=== PATIENT | female | born 1975 | race Two or more races ===

== ENCOUNTER 2017-08-28 10:56 | Inpatient (IN) | payer MEDICAID ==
[2017-08-28] MEDS ORDERED: cefTRIAXone 1 GM in Sodium Chloride 0.9% 50 ML IV ONE (11:34)
--- NOTE | 2017-08-28 11:56 | ED Physician Chart ---
ED Chief Complaint/HPI - Patient Information Date Seen:: 08/28/17 Time Seen:: 11:00 Chief Complaint:: Left Leg Redness History of Present Illness:: onset x 3 days of LLE erythema, pain, and swelling after a possible insect bite 3 days ago; pt's last tetanus shot: > 5 years; pt denies trauma, H/As, neck pain , S/T, cough, C/P, SOB, Abd. pain, A/N/V/D/C, fever, chills, or urinary s/s Allergies:: Allergies Allergy/AdvReac Type Severity Reaction Status Date / Time No Known Allergies Allergy Verified 08/28/17 11:18 Vitals:: Vital Signs - 8 hr 08/28/17 11:08 Temp 98.3 F HR 96 RR 16 BP 123/60 O2 Sat % 97 Historian:: Patient, Family Member Review:: Nurse's Note Reviewed ED Review of Systems - Review of Systems General/Constitutional: No fever, No chills, No weight loss, No weakness, No diaphoresis, No edema, No loss of appetite Skin: Skin lesions, Rash, No bruising Head: No headache, No light-headedness Eyes: No loss of vision, No pain, No diplopia ENT: No earache, No nasal drainage, No sore throat, No tinnitus Neck: No neck pain, No swelling, No thyromegaly, No stiffness, No mass noted Cardio Vascular: No chest pain, No palpitations, No PND, No orthopnea, No edema Pulmonary: No SOB, No cough, No sputum, No wheezing GI: No nausea, No vomiting, No diarrhea, No pain, No melena, No hematochezia, No constipation, No hematemesis G/U: No dysuria, No frequency, No hematuria, No nacturia Visual Inspector: No vaginal discharge, No abnormal vaginal bleed, No contraction Musculoskeletal: No bone or joint pain, No back pain, No muscle pain Endocrine: No polyuria, No polydipsia Psychiatric: No prior psych history, No depression, No anxiety, No suicidal ideation, No homicidal ideation, No auditory hallucination, No visual hallucination Hematopoietic: No bruising, No lymphadenopathy Allergic/Immuno: No urticaria, No angioedema Neurological: No syncope, No focal symptoms, No weakness, No paresthesia, No headache, No seizure, No dizziness, No confusion, No vertigo ED Past Medical History - Past Medical History Obtainable: Yes Past Medical History: No significant medical hx Family History: HTN Social History: Non Smoker, No Alcohol, No Drug Use, Single Surgical History: None Psychiatricy History: None Medication: Reviewed Family Medical History - Family Member Mother History Unknown: Yes ED Physical Exam - Physical Examination General/Constitutional: Awake, Well-developed, well-nourished, Alert, No distress, GCS 15, Non-toxic appearing, Ambulatory Head: Atraumatic Eyes: Lids, conjuctiva normal, PERRL, EOMI Skin: Nl inspection, No rash, No skin lesions, No ecchymosis, Well hydrated, No lymphadenopathy Other Skin comments:: + LLE Cellulitis; + Insect Bite PW; no FBs; good NV functions ENMT: External ears, nose nl, TM canals nl, Nasal exam nl, Lips, teeth, gums nl , Oropharynx nl, Tonsils nl Neck: Nontender, Full ROM w/o pain, No JVD, No nuchal rigidity, No bruit, No mass, No stridor Respiratory: Nl effort/Exclusion, Clear to Auscultation, No Wheeze/Rhonchi/Rales Cardio Vascular: RRR, No murmur, gallop, rubs, NL S1 S2, Carotid/Femoral/Distal pulses equal bilaterally GI: No tenderness/rebounding/guarding, No organomegaly, No hernia, Normal BS's, Nondistended, No mass/bruits, No McBurney tenderness : No CVA tenderness Extremities: No tenderness or effusion, Full ROM, normal strength in all extremities, No edema, Normal digits & nails Neuro/Psych: Alert/oriented, DTR's symmetric, Normal sensory exam, Normal motor strength, Judgement/insight normal, Mood normal, Normal gait, No focal deficits Misc: Normal back, No paraspinal tenderness ED Labs/Radiology/EKG Results - Lab Results Comments:: unremarkable - Radiology Results Comments:: NAD - EKG Interpretations Rate & Rhythm: NSR Comments:: non-specific st-t changes ED Septic Shock - . Is Septic Shock (SBP<90, OR Lactate>4 mmol\L) present?: No - <6hrs of presentation: Vital Signs: Vital Signs - 8 hr 08/28/17 11:08 Temp 98.3 F HR 96 RR 16 BP 123/60 O2 Sat % 97 ED Reassessment (Disposition) - Reassessment Reassessment Condition:: Improved - Diagnosis Diagnosis:: Left Leg Cellulitis; LLE Erythema and Swelling - Aftercare/Follow up Instructions Aftercare/Follow-Up Instructions:: Counseled pt regarding lab results/diagnosis & need follow up, Counseled pt & family regarding lab results/diagnosis & need follow up - Patient Disposition Discharge/Transfer:: Acute Care w/in this hosp Accepting Physician:: Dr. Cisse Time Called:: 1145 Time Responded:: 11:45 Admitted to:: Med/Surg Spoke to:: Dr. Cisse Admitting Medical Physician:: Dr. Cisse Condition at Disposition:: Stable, Improved
[2017-08-28 12:01] LABS: INR 1.1 (0.5-1.4); PROTHROMBIN TIME (TEST) 11.5 SECONDS (9.5-11.5)
[2017-08-28 12:05] LABS: MANUAL DIFF REQUIRED? YES; MEAN CELL VOLUME 84.3 fl (81-100)
[2017-08-28 12:08] LABS: ALB/GLOB RATIO 1.2 (1.0-1.8); ALBUMIN 3.3 gm/dL (3.7-5.3); ALKALINE PHOSPHATASE 71 U/L (34-104); ANION GAP 11.2 (7.0-16.0); BILIRUBIN,TOTAL 0.9 mg/dL (0.3-1.0); BUN - UREA NITROGEN 11 mg/dL (7-25); CALCIUM SERUM 8.3 mg/dL (8.6-10.3); CARBON DIOXIDE 24.3 mEq/L (21.0-31.0); CHLORIDE 102 mEq/L (98-107); CREATININE - SERUM 0.6 mg/dL (0.6-1.2); CREATININE KINASE 60 U/L (30-223); GFR AFRICAN-AMERICAN > 60.0 ml/min (>90); GFR NON AFRICAN-AMERICAN > 60.0 ml/min; GLUCOSE 116 mg/dL (70-105); POTASSIUM SERUM 3.5 mEq/L (3.5-5.1); SGOT 24 U/L (13-39); SGPT/ALT 34 U/L (7-52); SODIUM SERUM 134 mEq/L (136-145); TOTAL PROTEIN,SERUM 6.1 gm/dL (6.0-8.3)
[2017-08-28 12:09] LABS: HEMATOCRIT 35.2 % (41.0-60); HEMOGLOBIN 11.9 gm/dL (12-16); MEAN CORPUSCULAR HEMOGLOBIN 28.4 pg (27.0-31.0); MEAN CORPUSCULAR HGB CONC 33.7 pg (28.0-36.0); MEAN PLATELET VOLUME 7.9 fl; PLATELET COUNT 265 Th/cmm (150-400); RED BLOOD COUNT 4.17 Mil/cmm (3.80-5.10); RED CELL DISTRIBUTION WIDTH 14.6 % (11.5-20.0)
[2017-08-28 12:12] LABS: WHITE BLOOD COUNT 19.7 Th/cmm (4.8-10.8)
[2017-08-28 12:21] LABS: TROP I < 0.01 ng/mL (0.01-0.05)
[2017-08-28 12:31] LABS: BAND NEUTROPHILE 11 % (0-10); BASOPHIL 0 % (0-3); EOSINOPHIL 0 % (0-5); LYMPHOCYTE 4 % (20-50); MONOCYTE 1 % (2-10); NEUTROPHILS 84 % (40-80); PLATELET ESTIMATE ADEQUATE (NORMAL); TOTAL CELLS COUNTED 100
[2017-08-28] MEDS ORDERED: Morphine Sulfate 2 mg/mL 1mL Syr IV STA (14:08)
[2017-08-28] MEDS ORDERED: Morphine Sulfate 2 mg/mL 1mL Syr ONE (14:23)
--- NOTE | 2017-08-28 14:37 | Diagnostic Imaging Report ---
Bilateral lower extremity DVT study HISTORY: Pain COMPARISON: None Technique: Longitudinal and transverse sonographic images of the bilateral lower extremity veins were obtained with doppler analysis. FINDINGS: There is normal compressibility, augmentation and phasicity of the bilateral common femoral, superficial femoral, popliteal, and posterior tibial veins. No thrombus is visualized. IMPRESSION: No evidence of thrombus within the bilateral lower extremity veins.
[2017-08-28] MEDS ORDERED: Morphine Sulfate 2 mg/mL 1mL Syr IVP PRN (15:31)
[2017-08-28 15:36] LABS: URINE MICROSCOPIC INDICATED? YES; URINE SOURCE MIDSTREAM
[2017-08-28 15:40] LABS: URINE BLOOD NEGATIVE (NEGATIVE); URINE GLUCOSE (UA) NEGATIVE (NEGATIVE); URINE KETONE TRACE mg/dL (NEGATIVE); URINE LEUKOCYTE ESTERASE NEGATIVE (NEGATIVE); URINE NITRATE POSITIVE (NEGATIVE); URINE PH 6.5 (4.6 - 8.0); URINE PROTEIN 100 mg/dL (NEGATIVE)
[2017-08-28 15:46] LABS: URINE COLOR ORANGE
[2017-08-28 15:54] LABS: URINE BILIRUBIN NEGATIVE (NEGATIVE); URINE CLARITY CLOUDY (CLEAR)
[2017-08-28 15:55] LABS: URINE BACTERIA 1+ /hpf (NONE SEEN); URINE EPITHELIAL CELLS MANY /lpf (FEW); URINE RBC 0-2 /hpf (0-5); URINE WBC 0-2 /hpf (0-5)
[2017-08-28 15:56] LABS: URINE ICTOTEST NEGATIVE (NEGATIVE)
[2017-08-28] MEDS: Enoxaparin 40 mg/0.4 mL 0.4mL Syr SUBQ SCH (17:16)
[2017-08-28 18:00] VITALS: BP 137/67
[2017-08-28] MEDS ORDERED: Pneumococcal Vaccine 0.5 mL Vial IM ONE (18:26)
--- NOTE | 2017-08-28 19:25 | History & Physical ---
ADMIT DATE: CHIEF COMPLAINT: Cellulitis of left lower extremity. HISTORY OF PRESENT ILLNESS: The patient is a 41-year-old female, who presented to the Emergency Room complaining of severe pain on the left lower extremity with redness and swelling, evaluated by the ER physician. Initial workup significant for severe cellulitis of left lower extremity. No chest pain or shortness of breath. No nausea, no vomiting, no fever, no chills. Admitted to medical floor, started on regular diet, IV antibiotic, pain medication. DVT prophylaxis. Infectious disease consultation obtained. PAST MEDICAL HISTORY: Negative. PAST SURGICAL HISTORY: and hysterectomy. ALLERGIES: None. MEDICATIONS: None. SOCIAL HISTORY: She smoke cigarettes. No alcohol or drugs. FAMILY HISTORY: Noncontributory. REVIEW OF SYSTEMS: SYSTEM: No history of chronic immune disorder. CARDIOVASCULAR SYSTEM: No coronary artery disease. ENDOCRINE SYSTEM: No diabetes or thyroid problem. GASTROINTESTINAL SYSTEM: No upper or lower gastrointestinal bleed. NEUROLOGICAL SYSTEM: No seizure disorder. MUSCULOSKELETAL SYSTEM: No muscular dystrophy. HEMATOLOGIC: No bleeding tendencies. RESPIRATORY SYSTEM: No asthma. GENITOURINARY: No dysuria or hematuria. PHYSICAL EXAMINATION: GENERAL: She is awake, alert, oriented, mildly in pain, not in distress. VITAL SIGNS: Temperature 99.0, heart rate 82, blood pressure 108/64. HEENT: Normocephalic. Pupils reacting equal to light and accommodation. Sclerae clear. NECK: Supple. Negative for lymphadenopathy, JVD, or bruit. CHEST: Entry of air bilaterally normal. No rhonchi or wheezing. HEART: S1, S2 normal. No murmur or gallop rhythm. ABDOMEN: Soft, bowel sounds positive. EXTREMITIES: Significant for redness, tenderness, swelling of the left lower extremity. NEUROLOGICAL: She is awake, alert, oriented. No focal motor or sensory deficit. LABORATORY DATA: White blood cells 19.7, hemoglobin 11.9, hematocrit 35.2, platelet 264. Sodium 134, potassium 3.5, BUN 11, creatinine 0.6. ASSESSMENT: Cellulitis of left lower extremities. PLAN: The patient admitted to the hospital under Dr. Cisse's service, started on regular diet, IV antibiotic, pain medication, Lovenox 40 mg subcutaneous for DVT prophylaxis. CBC, CMP for tomorrow. Dr. Elpidio Su consulted on the case. [facility]# [id number]
[2017-08-28] MEDS ORDERED: Clindamycin 150 mg/mL 4mL Vial ONE (20:47)
[2017-08-28] MEDS: CLINDAMYCIN 900 MG/50 ML IV SCH (23:16)
[2017-08-29] MEDS ORDERED: Clindamycin 150 mg/mL 4mL Vial ONE (04:06)
[2017-08-29 06:21] LABS: ALBUMIN 3.1 gm/dL (3.7-5.3); ALKALINE PHOSPHATASE 74 U/L (34-104); ANION GAP 10.9 (7.0-16.0); BILIRUBIN,TOTAL 0.7 mg/dL (0.3-1.0); BUN - UREA NITROGEN 10 mg/dL (7-25); CALCIUM SERUM 8.4 mg/dL (8.6-10.3); CARBON DIOXIDE 23.8 mEq/L (21.0-31.0); CHLORIDE 102 mEq/L (98-107); CREATININE - SERUM 0.7 mg/dL (0.6-1.2); GFR AFRICAN-AMERICAN > 60.0 ml/min (>90); GFR NON AFRICAN-AMERICAN > 60.0 ml/min; GLUCOSE 88 mg/dL (70-105); POTASSIUM SERUM 3.7 mEq/L (3.5-5.1); SGOT 28 U/L (13-39); SGPT/ALT 36 U/L (7-52); SODIUM SERUM 133 mEq/L (136-145); TOTAL PROTEIN,SERUM 6.1 gm/dL (6.0-8.3)
[2017-08-29 06:43] LABS: % BASOPHILS 0.2 % (0.0-2.0); % EOSINOPHILS 0.2 % (0.0-5.0); % LYMPHOCYTES 10.3 % (20.0-50.0); % NEUTROPHILS 85.3 % (40.0-80.0); HEMATOCRIT 33.8 % (41.0-60); HEMOGLOBIN 11.6 gm/dL (12-16); LYMPHOCYTE ABSOLUTE 1.5 Th/cmm (1.5-3.0); MEAN CELL VOLUME 84.9 fl (81-100); MEAN CORPUSCULAR HEMOGLOBIN 29.2 pg (27.0-31.0); MEAN CORPUSCULAR HGB CONC 34.4 pg (28.0-36.0); MEAN PLATELET VOLUME 8.2 fl; MONOCYTE ABSOLUTE 0.6 Th/cmm (0.3-1.0); NEUTROPHILE ABSOLUTE 12.7 Th/cmm (1.8-8.0); PLATELET COUNT 229 Th/cmm (150-400); RED BLOOD COUNT 3.99 Mil/cmm (3.80-5.10)
[2017-08-29 06:49] LABS: WHITE BLOOD COUNT 14.8 Th/cmm (4.8-10.8)
[2017-08-29] MEDS: CLINDAMYCIN 900 MG/50 ML IV SCH ×3 (06:54→20:34)
[2017-08-29] MEDS: Enoxaparin 40 mg/0.4 mL 0.4mL Syr SUBQ SCH (08:58)
--- NOTE | 2017-08-29 10:28 | Internal Medicine Prog Note ---
Internal Medicine Subjective - Subjective Service Date: 08/29/17 Patient seen and examined:: with staff Patient is:: awake, in bed, talking Patient Complaints of:: other (LESS PAIN OF LEFT LOWER EXTREMETY.) Internal Medicine Objective - Results Result Diagrams: 08/29/17 05:15 08/29/17 05:15 Recent Labs: Laboratory Last Values WBC 14.8 Th/cmm (4.8-10.8) H D 08/29/17 05:15 RBC 3.99 Mil/cmm (3.80-5.10) 08/29/17 05:15 Hgb 11.6 gm/dL (12-16) L 08/29/17 05:15 Hct 33.8 % (41.0-60) L 08/29/17 05:15 MCV 84.9 fl (81-100) 08/29/17 05:15 MCH 29.2 pg (27.0-31.0) 08/29/17 05:15 MCHC Differential 34.4 pg (28.0-36.0) 08/29/17 05:15 RDW 15.0 % (11.5-20.0) 08/29/17 05:15 Plt Count 229 Th/cmm (150-400) 08/29/17 05:15 MPV 8.2 fl 08/29/17 05:15 Neutrophils % 85.3 % (40.0-80.0) H 08/29/17 05:15 Band Neutrophils % 11 % (0-10) H 08/28/17 11:20 Lymphocytes % 10.3 % (20.0-50.0) L 08/29/17 05:15 Monocytes % 4.0 % (2.0-10.0) 08/29/17 05:15 Eosinophils % 0.2 % (0.0-5.0) 08/29/17 05:15 Basophils % 0.2 % (0.0-2.0) 08/29/17 05:15 Neutrophils (Manual) 84 % (40-80) H 08/28/17 11:20 Lymphocytes 4 % (20-50) L 08/28/17 11:20 Monocytes 1 % (2-10) L 08/28/17 11:20 Eosinophils 0 % (0-5) 08/28/17 11:20 Basophils 0 % (0-3) 08/28/17 11:20 Platelet Estimate ADEQUATE (NORMAL) 08/28/17 11:20 PT 11.5 SECONDS (9.5-11.5) 08/28/17 11:20 INR 1.10 (0.5-1.4) 08/28/17 11:20 PTT (Actin FS) 27.6 SECONDS (26.0-38.0) 08/28/17 11:20 Sodium 133 mEq/L (136-145) L 08/29/17 05:15 Potassium 3.7 mEq/L (3.5-5.1) 08/29/17 05:15 Chloride 102 mEq/L (98-107) 08/29/17 05:15 Carbon Dioxide 23.8 mEq/L (21.0-31.0) 08/29/17 05:15 Anion Gap 10.9 (7.0-16.0) 08/29/17 05:15 BUN 10 mg/dL (7-25) 08/29/17 05:15 Creatinine 0.7 mg/dL (0.6-1.2) 08/29/17 05:15 Est GFR ( Amer) > 60.0 ml/min (>90) 08/29/17 05:15 Est GFR (Non-Af Amer) > 60.0 ml/min 08/29/17 05:15 BUN/Creatinine Ratio 14.3 08/29/17 05:15 Glucose 88 mg/dL (70-105) 08/29/17 05:15 Whole Bld Lactic Acid 1.97 mmol/L (0.60-1.99) 08/28/17 11:20 Calcium 8.4 mg/dL (8.6-10.3) L 08/29/17 05:15 Total Bilirubin 0.7 mg/dL (0.3-1.0) 08/29/17 05:15 AST 28 U/L (13-39) 08/29/17 05:15 ALT 36 U/L (7-52) 08/29/17 05:15 Alkaline Phosphatase 74 U/L (34-104) 08/29/17 05:15 Creatine Kinase 60 U/L (30-223) 08/28/17 11:20 Troponin I < 0.01 ng/mL (0.01-0.05) L 08/28/17 11:20 Total Protein 6.1 gm/dL (6.0-8.3) 08/29/17 05:15 Albumin 3.1 gm/dL (3.7-5.3) L 08/29/17 05:15 Globulin 3.0 gm/dL 08/29/17 05:15 Albumin/Globulin Ratio 1.0 (1.0-1.8) 08/29/17 05:15 Serum , Qual NEGATIVE (NEGATIVE) 08/28/17 11:20 Urine Source MIDSTREAM 08/28/17 14:00 Urine Color ORANGE 08/28/17 14:00 Urine Clarity CLOUDY (CLEAR) H 08/28/17 14:00 Urine pH 6.5 (4.6 - 8.0) 08/28/17 14:00 Ur Specific [place] 1.020 (1.005-1.030) 08/28/17 14:00 Urine Protein 100 mg/dL (NEGATIVE) H 08/28/17 14:00 Urine Glucose (UA) NEGATIVE mg/dL (NEGATIVE) 08/28/17 14:00 Urine Ketones TRACE mg/dL (NEGATIVE) 08/28/17 14:00 Urine Blood NEGATIVE (NEGATIVE) 08/28/17 14:00 Urine Nitrate POSITIVE (NEGATIVE) H 08/28/17 14:00 Urine Bilirubin NEGATIVE (NEGATIVE) 08/28/17 14:00 Urine Ictotest NEGATIVE (NEGATIVE) 08/28/17 14:00 Urine Urobilinogen 4.0 E.U./dL (0.2 - 1.0) H 08/28/17 14:00 Ur Leukocyte Esterase NEGATIVE (NEGATIVE) 08/28/17 14:00 Urine RBC 0-2 /hpf (0-5) 08/28/17 14:00 Urine WBC 0-2 /hpf (0-5) 08/28/17 14:00 Ur Epithelial Cells MANY /lpf (FEW) 08/28/17 14:00 Urine Bacteria 1+ /hpf (NONE SEEN) H 08/28/17 14:00 - Physical Exam Vitals and I&O: Vital Signs Temp 97.7 F 08/29/17 08:00 Pulse 90 08/29/17 08:00 Resp 18 08/29/17 08:00 BP 116/65 08/29/17 08:00 Pulse Ox 99 08/29/17 08:00 Intake & Output 08/28/17 08/29/17 08/29/17 18:59 06:59 18:59 Intake Total 1000 Balance 1000 Weight (lbs) 117.934 kg 117.934 kg Intake: Intake, IV Amount 400 Clindamycin 900mg/50mL 50 900 mg In 50 ml @ 100 mls /hr IV Q8HR [facility], [facility]–1983 Rx#: [id number] Piperacillin Sodium/ 100 Tazobact 4.5 gm In Sodium Chloride 0.9% 100 ml @ 100 mls/hr IV Q8HR [facility], [facility]–1983 Rx #:[id number] Vancomycin HCl 1.25 gm In 250 Sodium Chloride 0.9% 250 ml @ 165 mls/hr IV Q8H [facility], [facility]1983 Rx#:[id number] Oral 600 Other: # Voids 2 # Bowel Movements 0 Weight Source Estimated Bedscale Active Medications: Current Medications Acetaminophen (Tylenol) 650 mg PO Q4H PRN PRN Reason: Pain or Fever >101 Stop: 10/27/17 15:31 Last Admin: 08/29/17 06:46 Dose: 650 mg Enoxaparin Sodium (Lovenox) 40 mg SUBQ DAILY [facility], [facility]1983 Stop: 10/27/17 16:59 Last Admin: 08/29/17 08:58 Dose: 40 mg Vancomycin HCl 1.25 gm/ Sodium (Chloride) 250 mls @ 165 mls/hr IV Q8H [facility]1983 Stop: 10/28/17 00:59 Last Admin: 08/29/17 09:19 Dose: 165 mls/hr Clindamycin Phosphate (Cleocin Pb) 900 mg in 50 mls @ 100 mls/hr IV Q8HR [facility]1983 Stop: 10/27/17 20:59 Last Admin: 08/29/17 06:54 Dose: 100 mls/hr Piperacillin Sod/Tazobactam (Sod 4.5 gm/ Sodium Chloride) 100 mls @ 100 mls/hr IV Q8HR [facility]1983 Stop: 10/27/17 20:59 Last Admin: 08/29/17 05:03 Dose: 100 mls/hr Morphine Sulfate (Morphine) 2 mg IVP Q4HR PRN PRN Reason: Pain (Severe) Stop: 10/27/17 15:30 Ondansetron HCl (Zofran) 4 mg IV Q4H PRN PRN Reason: Nausea / Vomiting Stop: 10/27/17 15:32 General: obese HEENT: NC/AT, PERRLA, anicteric sclerae, throat clear Neck: Supple, No JVD, No thyromegaly, No LAD, + JVD Lungs: CTAB Cardiovascular: Normal S1, Normal S2, without murmur Abdomen: non-tender, non-distended Extremities: other (REDNESS OF LEFT LOWER EXTREMETY) Neurological: alert - Procedures Procedures: Procedures Procedure Code Date EPISIOTOMY 73.6 04/14/96 EKG 75.32 04/14/96 MONITORING NOS 75.34 04/14/96 Internal Medicine Assmt/Plan - Assessment Assessment: 1.CELLULITIS OF LEFT LOWER EXTREMETY. - Plan Plan: CONTINUE ON CURRENT MEDICATION AND DIET.
[2017-08-30] MEDS ORDERED: Hydrocodone/APAP 5mg/325mg Tab PO PRN (01:46)
[2017-08-30] MEDS: CLINDAMYCIN 900 MG/50 ML IV SCH ×2 (04:59→13:08)
[2017-08-30 06:38] LABS: % BASOPHILS 0.5 % (0.0-2.0); % EOSINOPHILS 1.3 % (0.0-5.0); % LYMPHOCYTES 17.6 % (20.0-50.0); % MONOCYTES 4.8 % (2.0-10.0); % NEUTROPHILS 75.8 % (40.0-80.0); BASOPHILE ABSOLUTE 0.1 Th/cumm (0-0.2); EOSINOPHILE ABSOLUTE 0.1 Th/cmm (0.1-0.4); HEMATOCRIT 31.1 % (41.0-60); HEMOGLOBIN 10.8 gm/dL (12-16); LYMPHOCYTE ABSOLUTE 1.8 Th/cmm (1.5-3.0); MEAN CELL VOLUME 84.2 fl (81-100); MEAN CORPUSCULAR HEMOGLOBIN 29.1 pg (27.0-31.0); MEAN CORPUSCULAR HGB CONC 34.5 pg (28.0-36.0); MEAN PLATELET VOLUME 8.1 fl; MONOCYTE ABSOLUTE 0.5 Th/cmm (0.3-1.0); PLATELET COUNT 249 Th/cmm (150-400); RED CELL DISTRIBUTION WIDTH 14.6 % (11.5-20.0); WHITE BLOOD COUNT 10.5 Th/cmm (4.8-10.8)
[2017-08-30] MEDS: Enoxaparin 40 mg/0.4 mL 0.4mL Syr SUBQ SCH (08:43)
--- NOTE | 2017-08-30 15:44 | Consultation ---
DATE OF CONSULTATION: 08/28/2017 PRIMARY CARE PHYSICIAN: Dr. Cisse. REASON FOR CONSULTATION: Left leg cellulitis. HISTORY OF PRESENT ILLNESS: This is a 41-year-old female started having redness at the lower leg gradually got worse and she started having fevers. She decided to come to Emergency where the patient evaluated and was found to have sepsis and was admitted to the hospital. Infectious consultation was called for further treatment. PAST MEDICAL HISTORY: and hysterectomy. SOCIAL HISTORY: Active smoker. FAMILY HISTORY: None. ALLERGIES: None. REVIEW OF SYSTEMS: A 14-point review of systems negative except above. PHYSICAL EXAMINATION: GENERAL: Alert, awake, not in distress. VITAL SIGNS: Temperature is 97, pulse 87, respirations 18, blood pressure 123/64. HEENT: Mild pallor, no icterus, or plaque. NECK: Supple. LUNGS: Breath sounds bilateral decreased. CARDIOVASCULAR: S1, S2. ABDOMEN: Soft, nontender. Bowel sounds present. LYMPHATICS: No thyroid and no cervical lymph nodes. EXTREMITIES: Left leg cellulitis involving 90% of the left leg with clear margin, local swelling. No active wound seen. No blisters, no necrosis. DIAGNOSES: Left leg cellulitis, sepsis. PLAN: The patient was started on Zosyn, vancomycin, and clindamycin combination. We will discontinue Rocephin. Pain control with morphine. Zofran for nausea. Rest of the care as ordered in CPOE. Thank you Dr. Cisse for this consultation. Discussed with the staff. JOB# [id number]
--- NOTE | 2017-08-30 19:52 | Infectious Disease Prog Note ---
Infectious Disease Subjective - Review of Systems Service Date: 08/30/17 Subjective: ccc cellulitis hpi- pt d/w staff to [facility] no efrv oe/ vss chest cabd soft cellulitis less dx cellulirtis plan comtinue abx Infectious Disease Objective - Results Result Diagrams: 08/30/17 05:45 08/29/17 05:15 Recent Labs: Laboratory Last Values WBC 10.5 Th/cmm (4.8-10.8) 08/30/17 05:45 RBC 3.70 Mil/cmm (3.80-5.10) L 08/30/17 05:45 Hgb 10.8 gm/dL (12-16) L 08/30/17 05:45 Hct 31.1 % (41.0-60) L 08/30/17 05:45 MCV 84.2 fl (81-100) 08/30/17 05:45 MCH 29.1 pg (27.0-31.0) 08/30/17 05:45 MCHC Differential 34.5 pg (28.0-36.0) 08/30/17 05:45 RDW 14.6 % (11.5-20.0) 08/30/17 05:45 Plt Count 249 Th/cmm (150-400) 08/30/17 05:45 MPV 8.1 fl 08/30/17 05:45 Neutrophils % 75.8 % (40.0-80.0) 08/30/17 05:45 Band Neutrophils % 11 % (0-10) H 08/28/17 11:20 Lymphocytes % 17.6 % (20.0-50.0) L 08/30/17 05:45 Monocytes % 4.8 % (2.0-10.0) 08/30/17 05:45 Eosinophils % 1.3 % (0.0-5.0) 08/30/17 05:45 Basophils % 0.5 % (0.0-2.0) 08/30/17 05:45 Neutrophils (Manual) 84 % (40-80) H 08/28/17 11:20 Lymphocytes 4 % (20-50) L 08/28/17 11:20 Monocytes 1 % (2-10) L 08/28/17 11:20 Eosinophils 0 % (0-5) 08/28/17 11:20 Basophils 0 % (0-3) 08/28/17 11:20 Platelet Estimate ADEQUATE (NORMAL) 08/28/17 11:20 PT 11.5 SECONDS (9.5-11.5) 08/28/17 11:20 INR 1.10 (0.5-1.4) 08/28/17 11:20 PTT (Actin FS) 27.6 SECONDS (26.0-38.0) 08/28/17 11:20 Sodium 133 mEq/L (136-145) L 08/29/17 05:15 Potassium 3.7 mEq/L (3.5-5.1) 08/29/17 05:15 Chloride 102 mEq/L (98-107) 08/29/17 05:15 Carbon Dioxide 23.8 mEq/L (21.0-31.0) 08/29/17 05:15 Anion Gap 10.9 (7.0-16.0) 08/29/17 05:15 BUN 10 mg/dL (7-25) 08/29/17 05:15 Creatinine 0.7 mg/dL (0.6-1.2) 08/29/17 05:15 Est GFR ( Amer) > 60.0 ml/min (>90) 08/29/17 05:15 Est GFR (Non-Af Amer) > 60.0 ml/min 08/29/17 05:15 BUN/Creatinine Ratio 14.3 08/29/17 05:15 Glucose 88 mg/dL (70-105) 08/29/17 05:15 Whole Bld Lactic Acid 1.97 mmol/L (0.60-1.99) 08/28/17 11:20 Calcium 8.4 mg/dL (8.6-10.3) L 08/29/17 05:15 Total Bilirubin 0.7 mg/dL (0.3-1.0) 08/29/17 05:15 AST 28 U/L (13-39) 08/29/17 05:15 ALT 36 U/L (7-52) 08/29/17 05:15 Alkaline Phosphatase 74 U/L (34-104) 08/29/17 05:15 Creatine Kinase 60 U/L (30-223) 08/28/17 11:20 Troponin I < 0.01 ng/mL (0.01-0.05) L 08/28/17 11:20 Total Protein 6.1 gm/dL (6.0-8.3) 08/29/17 05:15 Albumin 3.1 gm/dL (3.7-5.3) L 08/29/17 05:15 Globulin 3.0 gm/dL 08/29/17 05:15 Albumin/Globulin Ratio 1.0 (1.0-1.8) 08/29/17 05:15 Serum , Qual NEGATIVE (NEGATIVE) 08/28/17 11:20 Urine Source MIDSTREAM 08/28/17 14:00 Urine Color ORANGE 08/28/17 14:00 Urine Clarity CLOUDY (CLEAR) H 08/28/17 14:00 Urine pH 6.5 (4.6 - 8.0) 08/28/17 14:00 Ur Specific [place] 1.020 (1.005-1.030) 08/28/17 14:00 Urine Protein 100 mg/dL (NEGATIVE) H 08/28/17 14:00 Urine Glucose (UA) NEGATIVE mg/dL (NEGATIVE) 08/28/17 14:00 Urine Ketones TRACE mg/dL (NEGATIVE) 08/28/17 14:00 Urine Blood NEGATIVE (NEGATIVE) 08/28/17 14:00 Urine Nitrate POSITIVE (NEGATIVE) H 08/28/17 14:00 Urine Bilirubin NEGATIVE (NEGATIVE) 08/28/17 14:00 Urine Ictotest NEGATIVE (NEGATIVE) 08/28/17 14:00 Urine Urobilinogen 4.0 E.U./dL (0.2 - 1.0) H 08/28/17 14:00 Ur Leukocyte Esterase NEGATIVE (NEGATIVE) 08/28/17 14:00 Urine RBC 0-2 /hpf (0-5) 08/28/17 14:00 Urine WBC 0-2 /hpf (0-5) 08/28/17 14:00 Ur Epithelial Cells MANY /lpf (FEW) 08/28/17 14:00 Urine Bacteria 1+ /hpf (NONE SEEN) H 08/28/17 14:00 Vancomycin Trough 11.7 ug/mL (5-10) H 08/29/17 16:12 - Physical Exam Vitals and I&O: Vital Signs Temp 96.5 F 08/30/17 15:37 Pulse 87 07/01/18 15:37 Resp 18 08/30/17 15:37 BP 122/67 08/30/17 15:37 Pulse Ox 97 08/30/17 15:37 Intake & Output 08/30/17 08/30/17 08/31/17 06:59 18:59 06:59 Intake Total 1500 350 Balance 1500 350 Weight (lbs) 143.562 kg Intake: Intake, IV Amount 700 350 Clindamycin 900mg/50mL 100 900 mg In 50 ml @ 100 mls /hr IV Q8HR [facility] Rx#: [id number] Piperacillin Sodium/ 100 100 Tazobact 4.5 gm In Sodium Chloride 0.9% 100 ml @ 100 mls/hr IV Q8HR [facility] Rx #:[id number] Vancomycin HCl 1.25 gm In 500 250 Sodium Chloride 0.9% 250 ml @ 165 mls/hr IV Q8H [facility] Rx#:[id number] Oral 800 Other: # Voids 3 # Bowel Movements 0 Weight Source Bedscale - Procedures Procedures: Procedures Procedure Code Date EPISIOTOMY 73.6 04/14/96 EKG 75.32 04/14/96 MONITORING NOS 75.34 04/14/96
--- NOTE | 2017-08-30 20:23 | Discharge Summary ---
DATE OF DISCHARGE: 08/30/2017 FINAL DIAGNOSIS: Cellulitis of the left lower extremity. REVIEW OF HISTORY: The patient is a 41-year-old female presented to the Emergency Room with severe tenderness, redness, swelling of the left lower extremity. Few days ago, initial workup significant for severe cellulitis of left lower extremity, admitted to medical floor, started on IV vancomycin. PHYSICAL EXAMINATION: VITAL SIGNS: Temperature 99, heart rate 82. CHEST: Clear to auscultation. ABDOMEN: Soft, bowel sounds positive. EXTREMITIES: Significant for redness, swelling, tenderness in the left lower extremity. LABORATORY DATA: White cell blood was 19.7, hemoglobin 11.9. Sodium 134, potassium 3.5. COURSE OF HOSPITALIZATION: The patient improved clinically. On 08/29/2017, the patient was feeling better, no chest pain, no shortness of breath, no nausea, no vomiting, no fever, no chills. Examination of the left lower extremity significant for the less redness/tenderness. White blood cell went down to 14.8. On 08/30/2017, her white blood cell 10.5, hemoglobin 10.8. PHYSICAL EXAMINATION: CHEST: Clear to auscultation. ABDOMEN: Soft, bowel sounds positive. EXTREMITIES: Significant for redness. No tenderness of the left lower extremity. DISPOSITION: The patient was discharged home to be followed up with primary physician as outpatient. Clindamycin 600 mg 3 times a day for 10 days, Florastor 250 twice a day for 10 days. [facility]# [id number]
== END 2017-08-30 15:55 | disposition home or self-care (01) | DRG 720 ==
LOC: ER 10:56 → MSI 14:51
PROVIDERS: ADMIT Family Medicine; ATTEND Family Medicine
DX: A41.9 Sepsis, unspecified organism (principal); E44.1 Mild protein-calorie malnutrition; Z68.43 Body mass index [BMI] 50.0-59.9, adult; L03.116 Cellulitis of left lower limb; F17.210 Nicotine dependence, cigarettes, uncomplicated; Z82.49 Family history of ischemic heart disease and other diseases of the circulatory system; Z90.710 Acquired absence of both cervix and uterus
CPT/HCPCS: 36415-UA; 80053-TC; 80202-TC; 81001-TC; 82550-TC; 83605; 84484-TC; 84703-TC; 85007-TC; 85025-TC; 85027-TC; 85610-TC; 85730-TC; 87086-90; 93005; 93970-TC-50; 96375; J0696; J1650; J2270; J2405; J2543; J3370; J3490; J7030; X5958; Z7610